=== PATIENT | female | born 1960 | race Hispanic/Latino ===

== ENCOUNTER 2024-12-09 06:23 | Day surgery (SDC) | payer BC, OTHER ==
[2024-12-07 12:06] LABS: BASOPHILS # (AUTO) 0.1 (0.0-0.1); BASOPHILS % 0.9 % (0.0-1.0); EOSINOPHILS # (AUTO) 0.2 (0.0-0.4); EOSINOPHILS % 1.5 % (0.0-6.0); HEMATOCRIT 32.4 % (34.2-44.1); HEMOGLOBIN 10.3 g/dL (12.0-16.0); LYMPHOCYTES % 9.7 % (18.0-39.1); MEAN CORPUSCULAR HEMOGLOBIN 30.4 pg (28-32); MEAN CORPUSCULAR HGB CONC 31.8 g/dL (31-35); MEAN CORPUSCULAR VOLUME 95.6 fL (81-99); MONOCYTES # (AUTO) 0.9 (0.2-0.8); MONOCYTES % 8.7 % (4.4-11.3); NEUTROPHILS # (AUTO) 7.8 (2.1-6.9); NEUTROPHILS % 78.7 % (38.7-80.0); PLATELET COUNT 300 x10e3/uL (140-360); RED BLOOD COUNT 3.39 x10e6/uL (3.6-5.1); RED CELL DISTRIBUTION WIDTH 19.8 % (11.7-14.4); WHITE BLOOD COUNT 9.93 x10e3/uL (4.8-10.8)
[2024-12-07 12:31] LABS: INR 0.98; PARTIAL THROMBOPLASTIN TIME 32.6 seconds (23.8-35.5); PROTHROMBIN TIME 13.9 seconds (11.9-14.5)
[2024-12-07 12:37] LABS: CREATININE, SERUM 0.8 mg/dL (0.57-1.11)
[~2024-12-09] VITALS: Ht 154.9 cm; Wt 85.7 kg
[2024-12-09] VITALS (11 sets, daily range): BP systolic 120–176; BP diastolic 59–73; PULSE 67–76; RESP 14–19; TEMP 96.6–97.2; O2SAT 68–97
[~2024-12-09 06:23] MED LIST: ARAVA20 MG PO; ATROVENT HFA12.9 GM INH; CETIRIZINE HCL10 MG; CLOPIDOGREL75 MG PO; CYMBALTA60 MG PO; DICYCLOMINE HCL20 MG PO; FEROSUL325 MG PO; FLONASE ALLERG9.9 ML INH; INCRUSE ELLI62.5 MCG; LAMICTAL100 MG PO; LIPITOR20 MG PO; LYRICA100 MG PO; MONTELUKAST SOD10 MG PO; NIFEDIPINE ER30 M1 PO; ONE DAILY ENER1 EACH; PANTOPRAZOLE SO40 MG PO; PLAQUENIL200 MG PO; SIMPONI AR50 MG/4 ML; TOPAMAX50 MG PO; VENLAFAXINE HCL75 M2 PO; VENTOLIN HFA18 GM INH; ZETIA10 MG PO
[2024-12-09] MEDS ORDERED: VERAPAMIL HCL 2.5 MG/ML 2 ML VIAL ONE (06:41)
[2024-12-09] MEDS ORDERED: HEPARIN SOD (PORCINE) 1000 UNIT/ML 30ML ONE (06:41)
[2024-12-09] MEDS ORDERED: LIDOCAINE HCL 2% LOCAL 20 ML VIAL ONE (06:42)
[2024-12-09] MEDS ORDERED: HEPARIN SOD/SOD CHLORIDE 2,000 ML ONE (06:42)
[2024-12-09] MEDS ORDERED: IOPAMIDOL 370 MG/ML 100 ML INFUS..BTL INJ ONE (06:42)
[2024-12-09] MEDS ORDERED: SODIUM CHLORIDE 0.9% 1000ML 2,000 ML ONE (06:43)
[2024-12-09] MEDS ORDERED: NITROGLYCERIN/D5W 200 MCG/ML 250 ML ONE (06:43)
[2024-12-09] MEDS ORDERED: FENTANYL CITRATE/PF 100MCG/2 ML INJ ONE ×2 (07:21→07:23)
[2024-12-09] MEDS ORDERED: MIDAZOLAM HCL 2 MG/2 ML VIAL ONE ×2 (07:21→07:23)
== END 2024-12-09 11:00 | disposition home or self-care (01) ==
LOC: CATH LAB 06:23
PROVIDERS: ATTEND Internal Medicine Cardiovascular Disease
DX: I70.213 Atherosclerosis of native arteries of extremities with intermittent claudication, bilateral legs (principal); J45.909 Unspecified asthma, uncomplicated; F32.A Depression, unspecified; F17.210 Nicotine dependence, cigarettes, uncomplicated; Z88.8 Allergy status to other drugs, medicaments and biological substances; Z01.810 Encounter for preprocedural cardiovascular examination; Z01.812 Encounter for preprocedural laboratory examination; Z01.818 Encounter for other preprocedural examination; Z79.02 Long term (current) use of antithrombotics/antiplatelets; Z79.899 Other long term (current) drug therapy; Z68.35 Body mass index [BMI] 35.0-35.9, adult; Z86.73 Personal history of transient ischemic attack (TIA), and cerebral infarction without residual deficits
CPT/HCPCS: 36000; 36415; 71046; 75625; 75716; 80048; 80061; 85025; 85610; 85730; 93005; C1760; C1769 ×2; C1894; J1644; J2003; J2250; J3010; J7030; Q9967; 36246; 99152; 99153